=== PATIENT | female | born 1990 | race Caucasian/White ===

== ENCOUNTER 2018-07-17 23:33 | Emergency (ER) | payer OTHER ==
[~2018-07-17] VITALS: Ht 165.1 cm; Wt 68.0 kg
--- NOTE | 2018-07-17 23:35 | NUR ---
TO BED # 3 AMBULATORY
[2018-07-17 23:36] VITALS: BP 126/73
[2018-07-17 23:37] VITALS: BP 126/73
--- NOTE | 2018-07-17 23:51 | NUR ---
Dr. Perez evaluating patient at bedside.
--- NOTE | 2018-07-17 23:57 | NUR ---
PT BIB SELF C/O L UPPER EYEBROW LACERATION S/P FOUND UPON WAKING UP IN BATHROOM THIS MORNING. DENIES PAIN, BLEEDING CONTROLLED, ECCHYOMOSIS AT SITE.
--- NOTE | 2018-07-17 23:58 | NUR ---
DR. VAZQUEZ AT BEDSIDE
--- NOTE | 2018-07-18 00:02 | NUR ---
Patient discharged with v/s stable. Written and verbal after care instructions given and explained. Patient alert, oriented and verbalized understanding of instructions. Ambulatory with steady gait. All questions addressed prior to discharge. ID band removed. Patient advised to follow up with PMD. Opportunity to ask questions provided and answered.
== END 2018-07-18 00:02 | disposition home or self-care (01) ==
LOC: MED 23:33
DX: S00.212A Abrasion of left eyelid and periocular area, initial encounter (principal); W01.0XXA Fall on same level from slipping, tripping and stumbling without subsequent striking against object, initial encounter; Y93.89 Activity, other specified; Y92.89 Other specified places as the place of occurrence of the external cause; Y99.8 Other external cause status
CPT/HCPCS: 90471; 90715; 99283